=== PATIENT | male | born 1995 | race Caucasian/White ===

== ENCOUNTER 2019-01-03 18:09 | Emergency (ER) | payer BC ==
[~2019-01-03] VITALS: Ht 182.9 cm; Wt 86.4 kg
[2019-01-03 18:18] VITALS: BP 112/68; PULSE 98; TEMP 98.1
[2019-01-03] MEDS ORDERED: KLONOPIN 0.5MG0.5 MG PO (18:37)
[2019-01-03] MEDS ORDERED: ATIVAN2 MG PO (18:37)
[2019-01-03] MEDS ORDERED: XANAX2 MG PO (18:38)
== END 2019-01-03 18:58 | disposition home or self-care (01) ==
LOC: COL.ER 18:09
DX: Z76.0 Encounter for issue of repeat prescription (principal)